=== PATIENT | female | born 1965 | race Caucasian/White ===

== ENCOUNTER 2017-12-04 22:49 | Emergency (ER) | payer SELFPAY ==
[~2017-12-04] VITALS: Ht 157.5 cm; Wt 68.0 kg
[2017-12-05 01:14] LABS: Basophils # (auto) 0 uL; Basophils % (auto) 0.5 % (0.0-2.0); Eosinophils # (auto) 0 uL; Eosinophils % (auto) 0.9 % (0.0-7.0); Hematocrit 33.8 % (36.0-46.0); Hemoglobin 11.4 g/dL (12.2-16.2); Lymphocytes % (auto) 23.1 % (10.0-50.0); Mean Corpuscular Hemoglobin 29.3 pg (28.0-32.0); Mean Corpuscular Hgb Conc. 33.6 g/dL (32.0-36.0); Mean Corpuscular Volume 87.1 fL (80.0-100.0); Monocytes # (auto) 0.4 uL; Neutrophils # (auto) 2.8 uL; Neutrophils % (auto) 65.5 % (37.0-80.0); Nucleated Red Blood Cells % 0.1 %; Platelet Count (auto) 236 10^3/uL (140-450); Red Blood Cells 3.88 10^6/uL (4.0-5.20); White Blood Cell 4.3 10^3/uL (4.4-10.8)
[2017-12-05 01:32] LABS: Partial Thromboplastin Time 27.5 sec (23.78-33.04); Prothrombin Time 10.7 sec (9.27-12.13)
[2017-12-05 01:36] LABS: Albumin 3.7 g/dL (3.4-5.0); Anion Gap 11 (5-15); BUN/Creatinine Ratio 9.9; Blood Alcohol < 3.0 mg/dL (0-5); Blood Urea Nitrogen 10 mg/dL (7-18); Calcium 8.2 mg/dL (8.5-10.1); Carbon Dioxide 22 mmol/L (21-32); Chloride 105 mmol/L (98-107); GFR African American 74 mL/min; GFR Non-African American 61 mL/min; Glucose 78 mg/dL (74-106); Magnesium 2.2 mg/dL (1.6-2.6); Potassium 3.4 mmol/L (3.5-5.1); Sodium 138 mmol/L (136-145)
[2017-12-05 02:39] LABS: Alanine Aminotransferase 21 U/L (13-56); Alkaline Phosphatase 73 U/L (45-117); Aspartate Aminotransferase 22 U/L (15-37); Bilirubin, Total 0.3 mg/dL (0.2-1.0); Total Protein 8.9 g/dL (6.4-8.2)
[2017-12-05 09:56] VITALS: BP 115/69
[2017-12-05] MEDS ORDERED: NEOMYCIN-POLYMY-DEXAMETH 0.1% OPTH(EYE) SUSP 5ML EACHEYE ONE (11:15)
[2017-12-05] MEDS ORDERED: LEVOTHYROXINE SODIUM 50 MCG TAB PO ONE (12:00)
[2017-12-05] MEDS ORDERED: GABAPENTIN 300 MG CAP PO ONE (12:00)
[2017-12-05] MEDS ORDERED: QUEtiapine FUMARATE 100 MG TAB PO ONE (12:00)
[2017-12-05 17:26] LABS: Urine Bacteria FEW /hpf (None Seen); Urine Blood Negative /uL (Negative); Urine Specific Gravity 1.009 (1.001-1.035); Urine WBC <1 /hpf (0 - 5)
[2017-12-05 17:55] LABS: Alcohol, Urine < 3.0 mg/dL (0-5); Amphetamine Screen, Urine POSITIVE (NEGATIVE); Barbiturate Scree,Urine NEGATIVE (NEGATIVE); Benzodiazephine Screen, Urine NEGATIVE (NEGATIVE); Cannabinoid Screen, Urine NEGATIVE (NEGATIVE); Cocaine Screen, Urine NEGATIVE (NEGATIVE); Opiate Scree,Urine NEGATIVE (NEGATIVE); Phencyclidine Screen, Urine NEGATIVE (NEGATIVE)
== END 2017-12-05 20:24 | disposition home or self-care (01) ==
LOC: ER 22:49
DX: H10.9 Unspecified conjunctivitis (principal); E03.9 Hypothyroidism, unspecified; E87.6 Hypokalemia; F31.9 Bipolar disorder, unspecified; M06.9 Rheumatoid arthritis, unspecified; F15.10 Other stimulant abuse, uncomplicated; Z88.8 Allergy status to other drugs, medicaments and biological substances; Z59.0 Homelessness
CPT/HCPCS: 36415; 71045; 80053; 80307; 80320; 81001; 83735; 83880; 84443; 84484; 85025; 85379; 85610; 85730; 93005